=== PATIENT | male | born 1955 | race Caucasian/White ===

== ENCOUNTER 2016-11-02 06:28 | Day surgery (SDC) | payer MEDICARE ==
[2016-10-19 10:06] LABS: HEMATOCRIT 43.1 % (40.0-51.0); HEMOGLOBIN 14.9 g/dL (13.6-17.8)
[2016-10-19 10:16] LABS: BUN (BLOOD UREA NITROGEN) 15 MG/DL (6-23); CALCIUM, SERUM 8.9 MG/DL (8.5-10.4); CHLORIDE, SERUM 106 MMOL/L (96-112); CO2 (CARBON DIOXIDE) 28 MMOL/L (24-34); CREATININE 0.95 MG/DL (0.70-1.30); GFR AFRICAN AMERICAN 99 ML/MIN (>=60); GFR NON AFRICAN AMERICAN 85 ML/MIN (>=60); POTASSIUM, SERUM 3.7 MMOL/L (3.5-5.3); SODIUM, SERUM 140 MMOL/L (135-148)
[2016-10-19 10:17] LABS: GLUCOSE, SERUM 105 MG/DL (60-99)
[2016-10-19 11:07] LABS: ASCORBIC ACID (UR NOT ORDER) NEG (NEG); BILIRUBIN, URINE NEGATIVE (NEG); KETONE, URINE NEGATIVE (NEG); LEUKOCYTE ESTERASE(NOT OR TRACE (NEG); WBC (NOT ORDERED) (RFLEX) 5 (0-5)
--- NOTE | ~2016-11-02 | OP ---
Record Of Operation [facility] [address] [place]. [address] NAME: JAMEE NORWOOD : 51 STATUS : [facility]#: [id number] AGE: 60 ADM/REG DATE : 11/02/16 MR#: [id number] REPORT SERV DATE: 11/02/16 DICTATED BY: DORON LUCERO JR. DATE: 11/02/16 REPORT STATUS : Draft TRANSCRIBED BY: MODTim DATE: 11/02/16 DATE OF PROCEDURE: 11/02/2016 SURGEON: Doron Lucero M.D. PREOPERATIVE DIAGNOSIS: Urinary retention, secondary to dysfunctional detrusor. POSTOPERATIVE DIAGNOSIS: Urinary retention, secondary to dysfunctional detrusor. PROCEDURE PERFORMED: Stage I InterStim lead placement. COMPLICATIONS: None. CONSULTATIONS: None. ANESTHESIA: General with an endotracheal tube. SPECIMENS: None. DRAINS: None. ESTIMATED BLOOD LOSS: 5 mL. INDICATION: Mr. Norwood is a 60-year-old gentleman, who is status post TURP, secondary to what is felt to be BPH, and causing urinary retention. He had a successful TURP with a good TUR defect result postoperatively, however, he still has been unable to empty his bladder. He is performing intermittent catheterization b.i.d. Based on his prior neurologic history, with back surgeries, and back injuries, and the neuropathy in his lower extremities, it was felt that he could have some combined problem with neurogenic bladder. He comes today for placement of a stage I InterStim device for testing to see if this will improve his detrusor function. PROCEDURE IN DETAIL: After the patient was identified and proper informed consent was obtained, he was taken to the operating room. General anesthesia was performed without complication using an endotracheal tube. He was then prepped and draped in normal sterile fashion in the prone position, with the anus and feet exposed for testing. I then placed a seeker needle into the S3 foramen on the patient's right. He had very little response at this particular location, on fluoroscopic exam the needle angle looked to be a little bit too vertical, and also the lead looked to be little too lateral. I then placed a second seeker needle more medially and had a more anatomic angle to the sacral nerve plexus and at that point, we were getting good anal Irais response, as well as toe response at 0.8 on the power setting of the InterStim device. I removed the stylet from the needle, placed a guidewire and the sheath, and placed the lead into this particular location. At this location, we lined up the lead 3 with the anterior surface of the sacrum and got only responses with lead 3 leads 0, 1, and 2 were unresponsive at any power setting. I then felt that maybe the angle of the lead was not quite anatomically correct, so, I placed a second Record Of Operation [address] [place]. [address] NAME: JAMEE NORWOOD : 51 STATUS : [facility] PAT#: [id number] AGE: 60 ADM/REG DATE : 11/02/16 MR#: [id number] REPORT SERV DATE: 11/02/16 DICTATED BY: DORON LUCERO JR. DATE: 11/02/16 REPORT STATUS : Draft TRANSCRIBED BY: ANTOINETTE DATE: 11/02/16 seeker needle leaving the sheath in place at a steeper angle from [id number], and was able to place it within the S3 foramen. This gave us an even better angle, I then removed the sheath, replaced it into this new location on the right, and replaced the lead in the same positioning, and got the same result with only the lead 3 giving response, lead 0, 1, and 2 were unresponsive. I then left that sheath in place, removing the lead, rinsing it in sterile saline. I then placed a seeker needle on the patient's left at a similar angle as our last placement on the left side, and at that point, I was able to get much better response and got anal Irais at a power setting of 1.9 in leads 0, 1, 2, and 3, and toe flexion in lead 3, and lead 2. This I felt was our best lead positioning, I then removed the sheath leaving the lead in place. I then tunneled the lead over to a pocket formed on the left upper buttock and connected the temporary connector to the lead, tunneled it back to the midline, and out the skin. I then closed the incisions using a 3-0 Vicryl and 4-0 Monocryl in the skin. I irrigated each of the wounds prior to closure. Telfa Tegaderm was used for dressing. The patient was awakened in the operating room and transferred to the postanesthesia care in stable condition. I will plan on stage 2 next Saturday if he gets a good response from this treatment. ALIZA/ANTOINETTE Doron Lucero Jr., M.D. / [id number] CC: Anisa Woodson Jr., M.D.
[~2016-11-02 06:28] MED LIST: ANDROGEL5 TOP; ASA5GR PO; ASAB PO; FLOMAX4 PO; FOLIC PO; IMDUR30 PO; KLOR-CON M2020 MEQ PO; L20 PO; LOP25 PO; LOP50 PO; MAX25 PO; NORCO1 TA2 PO; NTG150 SL; PEPCID COMPLETE PO; PLAVIX PO; PRIN2.5 PO; RANITIDINE300 MG PO; TOPXL25 PO; TOPXL50 PO; X5 PO; ZOCOR40 PO; [UNRECOGNIZED DRUG - REMARK]
== END 2016-11-02 14:12 | disposition home or self-care (01) ==
LOC: SDC 06:28
PROVIDERS: Urology
PROC: 01HY0MZ Insertion of Neurostimulator Lead into Peripheral Nerve, Open Approach (ICD-10-PCS; 2016-11-02)
PROC: 01PY0MZ Removal of Neurostimulator Lead from Peripheral Nerve, Open Approach (ICD-10-PCS; principal; 2016-11-02 07:45)
DX: Z46.2 Encounter for fitting and adjustment of other devices related to nervous system and special senses (principal); I10 Essential (primary) hypertension; F17.210 Nicotine dependence, cigarettes, uncomplicated; I25.10 Atherosclerotic heart disease of native coronary artery without angina pectoris; K21.9 Gastro-esophageal reflux disease without esophagitis; Z98.890 Other specified postprocedural states; Z90.49 Acquired absence of other specified parts of digestive tract; Z95.5 Presence of coronary angioplasty implant and graft
CPT/HCPCS: 80048; 81001; 85014; 85018; 93005; A9270-GY; C1778; J0330; J2250; J2405; J3010

== ENCOUNTER 2016-11-07 06:33 | Day surgery (SDC) | payer MEDICARE ==
[2016-11-05 11:17] LABS: ASCORBIC ACID (UR NOT ORDER) NEG (NEG); BILIRUBIN, URINE NEGATIVE (NEG); KETONE, URINE NEGATIVE (NEG); LEUKOCYTE ESTERASE(NOT OR TRACE (NEG); WBC (NOT ORDERED) (RFLEX) 1 (0-5)
[2016-11-05 11:19] LABS: HEMATOCRIT 45.6 % (40.0-51.0)
[2016-11-05 11:30] LABS: BUN (BLOOD UREA NITROGEN) 17 MG/DL (6-23); CHLORIDE, SERUM 102 MMOL/L (96-112); CO2 (CARBON DIOXIDE) 32 MMOL/L (24-34); CREATININE 1.11 MG/DL (0.70-1.30); GFR AFRICAN AMERICAN 82 ML/MIN (>=60); GFR NON AFRICAN AMERICAN 71 ML/MIN (>=60); GLUCOSE, SERUM 78 MG/DL (60-99); POTASSIUM, SERUM 4.3 MMOL/L (3.5-5.3); SODIUM, SERUM 137 MMOL/L (135-148)
--- NOTE | ~2016-11-07 | OP ---
Record Of Operation [facility] [address] [place]. [address] NAME: JAMEE NORWOOD : 51 STATUS : [facility]#: [id number] AGE: 61 ADM/REG DATE : 11/07/16 MR#: [id number] REPORT SERV DATE: 11/07/16 DICTATED BY: DORON LUCERO JR. DATE: 11/07/16 REPORT STATUS : Draft TRANSCRIBED BY: MODTim DATE: 11/07/16 DATE OF PROCEDURE: 11/07/2016 PREOPERATIVE DIAGNOSIS: Urinary retention and overactive bladder. POSTOPERATIVE DIAGNOSIS: Urinary retention and overactive bladder. PROCEDURE PERFORMED: InterStim stage II. COMPLICATIONS: None. CONSULTATIONS: None. ANESTHESIA: General with an endotracheal tube. SPECIMENS: None. DRAINS: None. ESTIMATED BLOOD LOSS: None. INDICATION: Mr. Norwood is a 61-year-old gentleman, who has a history of back injury with a combination of bladder outlet obstruction, and bladder instability, and overactive bladder. He has had a TURP initially to relieve the bladder outlet obstruction. He was still unable to void with any success and having continued urgency postoperatively, we tried him on some medications without success and he now comes in for a stage II InterStim, he had a stage I placed last week. His urgency has decreased by over 50%. He has slept through the night, the last two nights without getting up to void, and overall is happy from an urgency standpoint. He still is been unable to empty his bladder on his own however. PROCEDURE IN DETAIL: After the patient was identified and proper informed consent was obtained, he was taken to the operating room. General anesthesia was performed without complication using an endotracheal tube. He was then prepped and draped in normal sterile fashion in the prone position. I made an incision overlying the previous incision from the connection between the permanent lead and the temporary lead. The connection was brought out through the skin and disconnected. The temporary lead was removed. I then connected the InterStim battery to the InterStim lead. I irrigated the pocket with sterile saline and placed the InterStim device within the pocket. The InterStim device was interrogated and successful interrogation was completed and all indications were that the device is working properly. I then closed the wound using 3-0 Vicryl suture in the deep tissue and a 4-0 Monocryl on the skin in a subcuticular fashion. Dermabond, Telfa, and Tegaderm were used for dressing. The patient was awakened in the operating room and transferred to the postanesthesia care unit in stable condition. I will see him back in the office in two weeks. Record Of Operation [facility] [address] [place]. [address] NAME: JAMEE NORWOOD : 51 STATUS : [facility] PAT#: [id number] AGE: 61 ADM/REG DATE : 11/07/16 MR#: [id number] REPORT SERV DATE: 11/07/16 DICTATED BY: DORON LUCERO JR. DATE: 11/07/16 REPORT STATUS : Draft TRANSCRIBED BY: ANTOINETTE DATE: 11/07/16 ALIZA/ANTOINETTE Doron Lucero Jr., M.D. / [id number] CC: Anisa Woodson Jr., M.D.
== END 2016-11-07 12:17 | disposition home or self-care (01) ==
LOC: SDC 06:33
PROVIDERS: Urology
PROC: 0JH70BZ Insertion of Single Array Stimulator Generator into Back Subcutaneous Tissue and Fascia, Open Approach (ICD-10-PCS; principal; 2016-11-07 08:15)
DX: N32.81 Overactive bladder (principal); R33.9 Retention of urine, unspecified; I25.118 Atherosclerotic heart disease of native coronary artery with other forms of angina pectoris; I25.2 Old myocardial infarction; I10 Essential (primary) hypertension; F17.210 Nicotine dependence, cigarettes, uncomplicated; Z95.5 Presence of coronary angioplasty implant and graft; Z79.82 Long term (current) use of aspirin; Z79.899 Other long term (current) drug therapy
CPT/HCPCS: 80048; 81001; 85014; 85018; C1767; J2250; J2370; J2405; J2710; J3010